=== PATIENT | male | born 1930 | race Two or more races ===

== ENCOUNTER 2016-04-22 09:50 | Inpatient (IN) | payer MEDICARE ==
[~2016-04-22] VITALS: Ht 167.6 cm; Wt 55.4 kg
--- NOTE | 2016-04-22 10:00 | NUR ---
bibra from a clinic due to low bp. Patient received awake, however appears confused. In no apparent distress noted, respiration even and unlabored. No sob, nor chest pain noted. Skin is warm to touch and non diaphoretic. Afebrile. Bp 102/56 at this time. Iv noted on left hand, patent. Gowned and placed on tele monitor.
--- NOTE | 2016-04-22 10:03 | NUR ---
Md guerra at for evaluation
[2016-04-22] MEDS ORDERED: IV NS 0.9% 500 ML IV ONE (10:04)
[2016-04-22] MEDS ORDERED: PRED5TAB PO (10:09)
[2016-04-22] MEDS ORDERED: ACET-868 PO (10:09)
[2016-04-22] MEDS ORDERED: LISI-658 PO (10:09)
[2016-04-22] MEDS ORDERED: MAGN400O6 PO (10:09)
[2016-04-22] MEDS ORDERED: MEGE400O PO (10:09)
[2016-04-22] MEDS ORDERED: ISOS10TA2 PO (10:09)
[2016-04-22] MEDS ORDERED: FURO-145 PO (10:09)
[2016-04-22] MEDS ORDERED: PANT40TA2 PO (10:09)
[2016-04-22] MEDS ORDERED: ESCI5TAB PO (10:09)
[2016-04-22] MEDS ORDERED: CLOP75TA2 PO (10:09)
[2016-04-22] MEDS ORDERED: HYDR-4076 PO (10:09)
[2016-04-22] MEDS ORDERED: HYDR-552 PO (10:09)
[2016-04-22] MEDS ORDERED: METO50TA3 PO (10:09)
[2016-04-22] MEDS ORDERED: ASPI-991 PO (10:09)
[2016-04-22] MEDS ORDERED: ASCO500T9 PO (10:09)
[2016-04-22 10:23] LABS: BASOPHILS % (AUTO) 0.1 % (0.0-2.0); EOSINOPHILS # (AUTO) 0.1 /CMM (0.0-0.7); EOSINOPHILS % (AUTO) 0.6 % (0.0-6.0); HEMATOCRIT 42 % (39-51); HEMOGLOBIN 13.5 g/dL (13.5-17.5); LYMPHOCYTES # (AUTO) 2.5 /CMM (0.8-4.8); LYMPHOCYTES % (AUTO) 23.5 % (20.0-44.0); MEAN CORPUSCULAR HEMOGLOBIN 29 PG (26.0-33.0); MEAN CORPUSCULAR HGB CONC 33 g/dl (31.0-36.0); MEAN CORPUSCULAR VOLUME 89 fL (80-96); MONOCYTES # (AUTO) 0.5 /CMM (0.1-1.30); MONOCYTES % (AUTO) 5.2 % (2.0-12.0); NEUTROPHILS # (AUTO) 7.4 /CMM (1.8-8.9); NEUTROPHILS % (AUTO) 70.6 % (43.0-81.0); PLATELET COUNT (AUTO) 286 /CMM (150-450); RDW COEFFICIENT OF VARIATION 18.3 (11.5-15.0); RED BLOOD CELL COUNT(AUTO) 4.65 MIL/uL (4.5-6.0); WHITE BLOOD COUNT (AUTO) 10.5 K/uL (4.3-11.0)
--- NOTE | 2016-04-22 10:24 | NUR ---
urine sample sent to lab
[2016-04-22] MEDS ORDERED: IV NS 0.9% 500 ML BAG IV ONE (10:30)
[2016-04-22 10:32] LABS: APPEARANCE,URINE Slightly Cloudy (CLEAR); BILIRUBIN,URINE Negative (NEGATIVE); BLOOD, URINE Trace-intact Ery/uL (NEGATIVE); COLOR,URINE Yellow (YELLOW); KETONES,URINE Negative (NEGATIVE); LEUKOCYTE ESTERASE ,URINE Negative (NEGATIVE); NITRITE, URINE Negative (NEGATIVE); PH,URINE 6.5 (5.0-8.0); PROTEIN,URINE Negative (NEGATIVE); UGLUCOSE Negative (NEGATIVE)
[2016-04-22 10:33] LABS: CALCIUM, SERUM 8.1 mg/dL (8.5-10.1); CREATININE 1.1 mg/dL (0.6-1.3); POTASSIUM 4.8 mmol/L (3.5-5.1)
[2016-04-22 10:38] LABS: INR 1.07 (0.87-1.13); PROTHROMBIN TIME 11.2 SECS (9.5-12.7)
[2016-04-22 10:42] LABS: TROPONIN I 0.093 ng/mL (0.00-0.056)
[2016-04-22 10:43] LABS: ADD URINE CULTURE NO; BACTERIA,URINE Rare /HPF (None Seen); SQUAMOUS EPITHELIAL CELL,UR Moderate /HPF (None Seen); WBC,URINE 0-2 /HPF (0-3)
[2016-04-22 10:46] LABS: ALBUMIN 2.3 g/dL (3.4-5.0); BILIRUBIN,DIRECT 0.1 mg/dL (0.0-0.2); BILIRUBIN,TOTAL 0.5 mg/dL (0.2-1.0); TOTAL PROTEIN, SERUM 5.9 g/dL (6.4-8.2)
[2016-04-22 10:52] LABS: LACTIC ACID 1.9 mmol/L (0.4-2.0)
--- NOTE | 2016-04-22 11:40 | NUR ---
PAGED FORESTRY FARM LABORER PANEL
--- NOTE | 2016-04-22 11:43 | NUR ---
REPORT GIVEN TO FELIPA DUMONT FOR TELE ROOM 307-2
[2016-04-22] MEDS ORDERED: ASPIRIN 325 MG TABLET PO ONE (12:00)
[2016-04-22] MEDS ORDERED: ASPIRIN 325 MG TABLET ONE (12:02)
--- NOTE | 2016-04-22 12:40 | NUR ---
TAXATION INSPECTOR NOTES RECEIVED PT FROM ER, DX HYPOTENSION, BY DR. MARQUEZ. PT SEEN IN A CLINIC AND WAS SENT TO ER DUE TO LOW BP. PT AO X 1, CONFUSED, UNABLE TO ANSWER QUESTIONS, LETHARGIC AND WEAK BUT ABLE TO OBEY COMMANDS. PLACED ON TELEMETRY - SINUS RHYTHM WITH PVC HR 66, DENIES PAIN/DISCOMFORT AT THIS TIME. IV ACCESS TO LEFT HAND G 20 FLUSHES WELL, SITE CLEAR. UNABLE TO OBTAIN GOOD HISTORY. SKIN INTACT. UNIT ORIENTATION DONE AND USE OF CALL LIGHT. BED LOW LOCKED. SR UP X2. WILL CONT TO MONITOR. DR. THOMPSON NOTIFIED OF ADMISSION FOR ADMIT ORDERS.
[2016-04-22 12:45] VITALS: BP 90/58
[2016-04-22 13:00] VITALS: BP 90/58
[2016-04-22] MEDS ORDERED: MAG HYDROX/AL HYDROX/SIMETH 30 ML UDC PO PRN (13:30)
[2016-04-22] MEDS ORDERED: MAGNESIUM HYDROXIDE 30 ML UDC PO PRN (13:30)
[2016-04-22] MEDS ORDERED: ALBUTEROL FS 2.5 MG/3 ML VIAL.NEB NEB PRN (13:30)
[2016-04-22] MEDS ORDERED: HYDROCODONE/APAP 5/325MG 1 EACH TABLET PO PRN (13:30)
[2016-04-22] MEDS ORDERED: ACETAMINOPHEN 325 MG TABLET PO PRN (13:30)
[2016-04-22] MEDS ORDERED: Z GUARD REMEDY 2 OZ OINT TP PRN (13:30)
[2016-04-22] MEDS ORDERED: ONDANSETRON HCL/PF 4 MG/2 ML VIAL IVP PRN (13:30)
[2016-04-22] MEDS ORDERED: ZOLPIDEM TARTRATE 5 MG TABLET PO PRN (13:30)
[2016-04-22] MEDS ORDERED: IV SET PRIMARY PUMP SET 1 EA INFUS.SET MC ONE ×2 (14:11→14:12)
[2016-04-22] MEDS: IV NS 0.9% 1,000 ML IV PRN (14:17)
[2016-04-22] MEDS: ENOXAPARIN SODIUM 40 MG/0.4 ML DISP.SYRIN SQ SCH (14:24)
[2016-04-22 16:00] VITALS: BP 117/69
[2016-04-22] MEDS: MEGESTROL ACETATE 40 MG TABLET PO SCH (16:54)
[2016-04-22 18:00] VITALS: BP 117/69
--- NOTE | 2016-04-22 18:28 | NUR ---
BREAK UP WORKER CLOSING NOTES PT RESTING COMFORTABLY IN BED, SON AT BEDSIDE, AO X 1, CONFUSED, UNABLE TO ANSWER QUESTIONS, ABLE TO OBEY COMMANDS. TELEMETRY READS SINUS RHYTHM WITH PVC HR 68, DENIES PAIN/DISCOMFORT AT THIS TIME. IV ACCESS TO LEFT HAND G 20 FLUSHES WELL, WITH NS A 175 ML/HR INFUSING WELL, SITE CLEAR. SKIN INTACT. CALL LIGHT AT WITHIN REACH. BED LOW LOCKED. SR UP X2. ALL NEEDS MET. WILL ENDORSE TO NEXT SHIFT FOR RAJNI.
--- NOTE | 2016-04-22 19:20 | NUR ---
WEB UI SOFTWARE ENGINEER NOTES RECEIVED ON BED A/O X 1,WITH EPISODE OF CONFUSION,SPEAK [place],NS 75ML/HR RATE INFUSING WELL VIA IV PUMP ON LEFT HAND.NO S/S OF INFILTRATION NOTED.DVT PUMP IN USE,ON LOVENOX SQ FOR DVT PROPHYLAXIS.FALL PRECAUTION OBSERVED,CALL LIGHT IN REACH,NEEDS ANTICIPATED.
[2016-04-22 20:00] VITALS: BP 122/60
[2016-04-22 20:18] VITALS: BP 122/60
[2016-04-23] VITALS (10 sets, daily range): BP systolic 94–151; BP diastolic 50–79
--- NOTE | 2016-04-23 00:39 | NUR ---
OPERATIONAL INTELLIGENCE OFFICER NOTES SLEEPING,IVF INFUSING,KEPT WARM AND COMFORTABLE.
[2016-04-23] MEDS: IV NS 0.9% 1,000 ML IV PRN ×2 (03:44→17:58)
--- NOTE | 2016-04-23 06:18 | NUR ---
TABLET REPAIR NOTES BP WITH IN NORMAL LIMITS 150/79,IVF INFUSING WELL ON LFA,SITE PATENT.DENIES CHEST PAIN.CALL LIGHT IN REACH,NEEDS ATTENDED.WILL ENDORSE TO DAY NURSE FOR RAJNI
[2016-04-23 07:05] LABS: BASOPHILS % (AUTO) 0.4 % (0.0-2.0); EOSINOPHILS % (AUTO) 0.4 % (0.0-6.0); HEMATOCRIT 38 % (39-51); HEMOGLOBIN 12.3 g/dL (13.5-17.5); LYMPHOCYTES # (AUTO) 2.3 /CMM (0.8-4.8); LYMPHOCYTES % (AUTO) 25.5 % (20.0-44.0); MEAN CORPUSCULAR HEMOGLOBIN 29 PG (26.0-33.0); MEAN CORPUSCULAR HGB CONC 33 g/dl (31.0-36.0); MEAN CORPUSCULAR VOLUME 90 fL (80-96); MONOCYTES # (AUTO) 0.7 /CMM (0.1-1.30); MONOCYTES % (AUTO) 7.4 % (2.0-12.0); NEUTROPHILS % (AUTO) 66.3 % (43.0-81.0); PLATELET COUNT (AUTO) 269 /CMM (150-450); RDW COEFFICIENT OF VARIATION 19.7 (11.5-15.0); RED BLOOD CELL COUNT(AUTO) 4.19 MIL/uL (4.5-6.0)
[2016-04-23 07:36] LABS: CALCIUM, SERUM 7.9 mg/dL (8.5-10.1); CREATININE 0.8 mg/dL (0.6-1.3); MAGNESIUM 1.7 mg/dL (1.8-2.4); PHOSPHORUS 2.7 mg/dL (2.5-4.9)
--- NOTE | 2016-04-23 08:03 | NUR ---
AM RN NOTES RECEIVED PT IN STABLE CONDITION, SLEEPING, EASY TO AROUSE, NO SOB OR DISTRESS NOTED, WILL MONITOR.
[2016-04-23] MEDS: ASPIRIN EC 81 MG TABLET.DR PO SCH (08:19)
[2016-04-23] MEDS: PANTOPRAZOLE 40 MG TABLET.DR PO SCH (08:19)
[2016-04-23] MEDS: CLOPIDOGREL BISULFATE 75 MG TABLET PO SCH (08:19)
[2016-04-23] MEDS: MEGESTROL ACETATE 40 MG TABLET PO SCH ×2 (08:19→16:48)
[2016-04-23] MEDS: ESCITALOPRAM OXALATE (10 MG) 10 MG TABLET PO SCH (08:19)
[2016-04-23] MEDS: ENOXAPARIN SODIUM 40 MG/0.4 ML DISP.SYRIN SQ SCH (08:20)
[2016-04-23] MEDS ORDERED: SECONDARY IV SET 1 EA INFUS.SET MC ONE (08:26)
[2016-04-23] MEDS: CARVEDILOL 6.25 MG TABLET PO SCH ×2 (08:29→21:27)
[2016-04-23] MEDS: Magnesium 1GM/D5W 100ML PREMIX 100 ML IV SCH ×2 (08:30→09:37)
--- NOTE | 2016-04-23 18:32 | NUR ---
PT RESTING IN BED COMFORTABLY, NO SOB OR DISTRESS NOTED, FAMILY AT BEDSIDE, PT REPOSITIONED AND KEPT CLEAN, WILL INDORSE TO NEXT SHIFT FOR RAJNI.
--- NOTE | 2016-04-23 19:52 | NUR ---
CREATIVE GURU NOTES RECEIVED PT AWAKE AND ALERT. NO S/S OF PAIN OR DISCOMFORT. ON ROOM AIR. NO ACUTE RESP. DISTRESS NOTED. LEFT FOREARM IV ACCESS NOTED, INTACT AND PATENT WITH IVF INFUSING WELL AT 75CC/HR. CLEAN AND DRY. WILL CONT TO MONITOR.
[2016-04-24] VITALS: BP 128/73
[2016-04-24 04:00] VITALS: BP 116/64
[2016-04-24 06:43] LABS: BASOPHILS % (AUTO) 0.1 % (0.0-2.0); EOSINOPHILS # (AUTO) 0.1 /CMM (0.0-0.7); EOSINOPHILS % (AUTO) 0.7 % (0.0-6.0); HEMATOCRIT 38 % (39-51); HEMOGLOBIN 12.8 g/dL (13.5-17.5); LYMPHOCYTES # (AUTO) 1.8 /CMM (0.8-4.8); LYMPHOCYTES % (AUTO) 16.4 % (20.0-44.0); MEAN CORPUSCULAR HEMOGLOBIN 30 PG (26.0-33.0); MEAN CORPUSCULAR HGB CONC 34 g/dl (31.0-36.0); MEAN CORPUSCULAR VOLUME 89 fL (80-96); MONOCYTES # (AUTO) 0.6 /CMM (0.1-1.30); MONOCYTES % (AUTO) 5.2 % (2.0-12.0); NEUTROPHILS # (AUTO) 8.4 /CMM (1.8-8.9); NEUTROPHILS % (AUTO) 77.6 % (43.0-81.0); PLATELET COUNT (AUTO) 252 /CMM (150-450); RDW COEFFICIENT OF VARIATION 19.3 (11.5-15.0); RED BLOOD CELL COUNT(AUTO) 4.27 MIL/uL (4.5-6.0); WHITE BLOOD COUNT (AUTO) 10.8 K/uL (4.3-11.0)
--- NOTE | 2016-04-24 06:54 | NUR ---
MANAGER CATH LAB NOTES NO SIGNIFICANT CHANGES NOTED DURING THE SHIFT. SR = 68 ON TELE MONITOR
[2016-04-24 07:06] LABS: BILIRUBIN,TOTAL 0.6 mg/dL (0.2-1.0); CALCIUM, SERUM 7.7 mg/dL (8.5-10.1); CREATININE 0.7 mg/dL (0.6-1.3); MAGNESIUM 1.9 mg/dL (1.8-2.4); PHOSPHORUS 2.4 mg/dL (2.5-4.9); POTASSIUM 4.7 mmol/L (3.5-5.1); TOTAL PROTEIN, SERUM 5.3 g/dL (6.4-8.2)
[2016-04-24 07:08] VITALS: BP 121/64
[2016-04-24 07:14] LABS: TROPONIN I 0.085 ng/mL (0.00-0.056)
--- NOTE | 2016-04-24 08:12 | NUR ---
AM RN NOTES RECEIVED PT IN STABLE CONDITION, NO SOB OR DISTRESS NOTED, NO PAIN OR DISCOMFORT, WILL MONITOR.
[2016-04-24 08:23] VITALS: BP 121/64
[2016-04-24] MEDS: ASPIRIN EC 81 MG TABLET.DR PO SCH (08:23)
[2016-04-24] MEDS: MEGESTROL ACETATE 40 MG TABLET PO SCH ×2 (08:23→16:20)
[2016-04-24] MEDS: CLOPIDOGREL BISULFATE 75 MG TABLET PO SCH (08:23)
[2016-04-24] MEDS: CARVEDILOL 6.25 MG TABLET PO SCH (08:23)
[2016-04-24] MEDS: PANTOPRAZOLE 40 MG TABLET.DR PO SCH (08:24)
[2016-04-24] MEDS: ESCITALOPRAM OXALATE (10 MG) 10 MG TABLET PO SCH (08:24)
[2016-04-24] MEDS: ENOXAPARIN SODIUM 40 MG/0.4 ML DISP.SYRIN SQ SCH (08:25)
--- NOTE | 2016-04-24 10:21 | NUR ---
PT VOMITED X1 DURING PHYSICAL THERAPY CHERRIE WAS SITTING AT EDGE OF THE BED, VOMITED MODERATE AMOUNT OF UNDIGESTED FOOD, CARE PROVIDED AND ASSISTED BACK TO BED, WILL ADMINISTER ZOFRAN AND MONITOR.
[2016-04-24] MEDS: NEUTRA PHOS 1 POWD.PACKET PO SCH ×2 (10:25→17:08)
[2016-04-24] MEDS: IV NS 0.9% 1,000 ML IV PRN (11:03)
--- NOTE | 2016-04-24 14:00 | NUR ---
pt in stable condition, no n/v noted, consumed his lunch, will monitor.
[2016-04-24] MEDS ORDERED: CARV6.252 PO (15:38)
--- NOTE | 2016-04-24 18:14 | NUR ---
pt discharged to [facility] in stable condition, no sob or distress noted, no ss of pain or discomfort, report given to snf and amt staff as well, family informed about transfer,all belongings taken with pt. pt left floor safely.
== END 2016-04-24 18:10 | DRG 281 ==
LOC: ER 09:52 → TELE 12:00 → MED 04-24 10:56
PROVIDERS: ADMIT Internal Medicine; ATTEND Internal Medicine
DX: I95.9 Hypotension, unspecified (principal); I21.4 Non-ST elevation (NSTEMI) myocardial infarction; I69.351 Hemiplegia and hemiparesis following cerebral infarction affecting right dominant side; R47.01 Aphasia; E46 Unspecified protein-calorie malnutrition; I50.32 Chronic diastolic (congestive) heart failure; Z68.1 Body mass index [BMI] 19.9 or less, adult; E78.5 Hyperlipidemia, unspecified; K21.9 Gastro-esophageal reflux disease without esophagitis; Z87.891 Personal history of nicotine dependence; E83.42 Hypomagnesemia; I25.2 Old myocardial infarction; I34.0 Nonrheumatic mitral (valve) insufficiency; I11.0 Hypertensive heart disease with heart failure; Z86.73 Personal history of transient ischemic attack (TIA), and cerebral infarction without residual deficits
CPT/HCPCS: 36415; 71010-TC; 80048-TC; 80053-TC; 80061-TC; 80076-TC; 81000-TC; 83605-TC; 83735-TC; 83880; 84100-TC; 84484-TC; 85025-TC; 85730-TC; 87040-TC; 87081-TC; 87086-TC; 92521; 93307-TC; 97001-TC; 97003-TC; 97110-TC; 97112-TC; 97530-TC; A4606; J1650; J2405; J3475; J7030; J7040; Z7610